=== PATIENT | female | born 1985 | race American Indian/Alaskan Native ===

== ENCOUNTER 2016-11-15 23:04 | Inpatient (IN) | payer MEDICAID, OTHER ==
[2016-11-16] MEDS ORDERED: LACTATED RINGERS 1,000 ML ONE (00:27)
[2016-11-16] MEDS ORDERED: BRETHINE IVP PRN (00:47)
[2016-11-16] MEDS ORDERED: XYLOCAINE 2% INFILTRATI ONE (00:47)
[2016-11-16] MEDS ORDERED: BRETHINE SUB-Q PRN (00:47)
[2016-11-16] MEDS ORDERED: SUBLIMAZE IV PRN (00:47)
[2016-11-16] MEDS ORDERED: NARCAN 0.4 MG/1 ML IV PRN (00:47)
[2016-11-16] MEDS ORDERED: ePHEDrine SULFATE IV PRN (00:47)
[2016-11-16] MEDS ORDERED: MINERAL OIL PO PRN (00:47)
[2016-11-16] MEDS ORDERED: ZOFRAN IV PRN ×2 (00:47→09:57)
--- NOTE | 2016-11-16 00:47 | History and Physical Report ---
History of Present Illness Date of examination: 11/16/16 Date of admission: 11/15/16 23:04 Chief complaint: IUFD History of present illness: Pt is a 31yo BF EDC 03/19/17; EGA 22 3/7 weeks presents from [facility] for induction due to IUFD. [facility] and went to [place] where an u/s showed an IUFD @ 22 weeks. Pt presents for induction of labor. records are not available, but [place] will fax her records. 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 History: herpes Family/Genetic History: hypertension, cancer Social history: no significant social history, - Obstetrical History Expected Date of Delivery: 03/19/17 Actual Gestation: 22 Week(s) 3 Day(s) : 9 Medications and Allergies Allergies Allergy/AdvReac Type Severity Reaction Status Date / Time acetaminophen Allergy Shortness Verified 05/12/13 09:22 [From Tylenol-Codeine #3] of Breath codeine phosphate Allergy Shortness Verified 05/12/13 09:22 [From Tylenol-Codeine #3] of Breath Latex, Natural Rubber Allergy Itching Verified 05/12/13 11:41 Home Medications Medication Instructions Recorded Confirmed Last Taken Type ALBUTEROL Inhaler [ProAir HFA 1 puff INHALATION PRN PRN 11/09/13 11/09/13 Unknown History Inhaler] Divalproex Dr [Depakote] 125 mg PO DAILY 11/09/13 11/09/13 10/10/13 History Ferrous Sulfate [Feosol 325 MG tab] 325 mg PO BID #60 tablet 01/15/15 Unknown Rx Ibuprofen [Motrin 800 MG tab] 800 mg PO Q8H PRN #30 tablet 01/15/15 Unknown Rx Pnv with Ca,No.72/Iron/FA 1 each PO DAILY #30 tablet 01/15/15 Unknown Rx [ Plus Tablet] Review of Systems All systems: negative - Vital Signs Vital signs: Vital Signs Pulse BP 76 123/78 11/15/16 23:37 11/15/16 23:37 Temp Pulse Resp BP Pulse Ox 76 123/78 11/15/16 23:37 11/15/16 23:37 - Physical Exam Breasts: Positive: deferred Cardiovascular: Regular rate Lungs: Positive: Clear to auscultation Abdomen: Positive: normal appearance, soft Genitourinary (Female): Positive: normal external genitalia Vagina: Positive: normal moisture Uterus: Positive: enlarged Extremities: Positive: normal - Obstetrical Uterine Contraction Monitor Mode: External Cervical Dilatation: 0 Cervical Effacement Percentage: 50 Results Result Diagrams: 11/16/16 01:58 11/16/16 01:58 All other labs normal. Ultrasound: pending Assessment and Plan - Patient Problems (1) demise, greater than 22 weeks, antepartum Onset Date: 11/16/16 Current Visit: Yes Status: Acute Qualifiers: Fetus number: single or unspecified fetus Qualified Code(s): O36.4XX0 - Maternal care for intrauterine , not applicable or unspecified Plan to address problem: A: IUFD @ 22 3/7 weeks P: Admit to L&D for induction of labor Obtain medical records from [place] and [facility]
[2016-11-16] MEDS ORDERED: PITOCin/NS 20 UNIT/1000ML DRIP 20 UNITS/1,000 ML BAG IV SCH ×2 (01:00→10:00)
[2016-11-16] MEDS ORDERED: PITOCin/NS 30 UNIT/500ML 30 UNITS/500 ML BAG IV SCH (01:00)
[2016-11-16] MEDS ORDERED: LACTATED RINGERS 1,000 ML IV SCH (01:00)
[2016-11-16] MEDS ORDERED: [UNRECOGNIZED DRUG - OTHER] VG SCH (02:00)
[2016-11-16 02:41] LABS: Hematocrit 31.2 % (30.3-42.9); Hemoglobin 10.3 gm/dl (10.1-14.3); Mean Corpuscular HGB Conc 33 % (30-34); Mean Corpuscular Hemoglobin 27 pg (28-32); Mean Corpuscular Volume 80 fl (79-97); Platelet Count 364 K/mm3 (140-440); Red Blood Count 3.89 M/mm3 (3.65-5.03); Red Cell Distribution Width 15.2 % (13.2-15.2); White Blood Count 9.1 K/mm3 (4.5-11.0)
[2016-11-16 03:33] LABS: Blood Urea Nitrogen 6 mg/dL (7-17); Calcium 10.2 mg/dL (8.4-10.2); Carbon Dioxide 18 mmol/L (22-30); Glucose 92 mg/dL (65-100)
[2016-11-16 04:01] LABS: Anion Gap 17 mmol/L; Chloride 105.2 mmol/L (98-107); Potassium 3.8 mmol/L (3.6-5.0); Sodium 136 mmol/L (137-145)
[2016-11-16] MEDS: STADOL IV PRN ×2 (04:51→10:08)
--- NOTE | 2016-11-16 09:55 | Procedure Note ---
OB Delivery Note - Delivery Date of Delivery: 11/16/16 Surgeon: BREANA LÓPEZ Estimated blood loss: 100cc - Vaginal Delivery presentation: unknown Intrapartum events: other(please specify) (IUFD) Delivery induction: other (prostin) Delivery monitor: external uterine Route of delivery: Delivery placenta: spontaneous Episiotomy: none Delivery laceration: none Anesthesia: intravenous - A at 1 minute: 0 at 5 minutes: 0 Gender: Female (255gms)
[2016-11-16] MEDS ORDERED: PHENERGAN PR PRN (09:57)
[2016-11-16] MEDS ORDERED: PHENERGAN PO PRN (09:57)
[2016-11-16] MEDS ORDERED: MILK OF MAGNESIA PO PRN (09:57)
[2016-11-16] MEDS ORDERED: TYLENOL PO PRN (09:57)
[2016-11-16] MEDS ORDERED: NORCO 5/325 PO PRN (09:59)
[2016-11-16] MEDS ORDERED: DULCOLAX PR PRN (10:00)
[2016-11-16] MEDS ORDERED: FEOSOL PO SCH (10:00)
[2016-11-16] MEDS ORDERED: SODIUM CHLORIDE FLUSH SYRINGE 10 ML IV NR (10:00)
[2016-11-16] MEDS ORDERED: PRENATAL VITAMIN PO SCH (10:00)
[2016-11-16] MEDS ORDERED: COLACE PO SCH (10:00)
[2016-11-16] MEDS ORDERED: LANSINOH TP PRN (11:00)
[2016-11-16] MEDS ORDERED: TUCKS PAD TP PRN (11:00)
[2016-11-16] MEDS ORDERED: BENADRYL PO PRN (11:00)
[2016-11-16 22:46] LABS: Hematocrit 30.2 % (30.3-42.9); Hemoglobin 9.9 gm/dl (10.1-14.3)
[2016-11-16] MEDS: MOTRIN PO SCH (22:51)
[2016-11-17] MEDS: MOTRIN PO SCH (04:45)
[2016-11-17] MEDS ORDERED: BOOSTRIX IM ONE (06:00)
--- NOTE | 2016-11-17 10:52 | Progress Note ---
Assessment and Plan A: S/P Vaginal delivery of IUFD P: Discharge home today Subjective - Subjective Date of service: 11/17/16 Principal diagnosis: IUFD @ 20+ weeks Patient reports: appetite normal : other (IUFD) Objective - Vital Signs Latest vital signs: Vital Signs Temp Pulse Pulse Resp BP BP 11/17/16 08:10 98.0 F 64 16 101/64 11/17/16 04:00 98.6 F 64 18 110/67 11/17/16 00:00 98.8 F 58 L 18 102/53 11/16/16 20:00 98.6 F 64 18 121/70 11/16/16 16:53 98.5 F 66 18 106/54 11/16/16 13:00 99.2 F 98 H 18 150/81 11/16/16 12:08 93 H 119/76 11/16/16 11:53 89 114/75 11/16/16 11:38 75 112/68 11/16/16 11:23 83 122/70 11/16/16 11:10 99.5 F 103 H 103 H 18 123/82 123/88 Intake and Output 11/16/16 11/17/16 11/17/16 22:59 06:59 14:59 Intake Total 600 Output Total 400 Balance 200 Intake: Oral 600 Output: Urine 400 Void 400 Other: Total, Intake Amount 240 Total, Output Amount 250 - Exam Breasts: Present: deferred Cardiovascular: Present: Regular rate Lungs: Present: Clear to auscultation Abdomen: Present: soft Vulva: both: normal Uterus: Present: fundal height below umbilicus Deep Tendon Reflex Grade: Normal +2 - Labs Labs: Abnormal lab results 11/16/16 Range/Units 22:20 Hgb 9.9 L (10.1-14.3) gm/dl Hct 30.2 L (30.3-42.9) %
--- NOTE | 2016-11-17 10:53 | Discharge Summary ---
Providers - Providers Date of Admission: 11/15/16 23:04 Date of discharge: 11/17/16 Attending physician: BREANA SULTANA MD Primary care physician: BREANA SULTANA MD Hospitalization Reason for admission: IUFD Delivery: Episiotomy: none Laceration: none Other procedures: none complications: none Discharge diagnosis: other (IUFD) baby: female Condition at discharge: Good Disposition: DC-01 TO HOME OR SELFCARE Plan - Provider Discharge Summary Activity: routine, no sex for 6 weeks, no strenuous exercise Diet: routine Instructions: routine Additional instructions: [] Smoking cessation referral if applicable(refer to patient education folder for contact #) [] Refer to [facility]'s [facility] Booklet Call your doctor immediately for: * Fever > 100.5 * Heavy vaginal bleeding ( >1 pad per hour) * Severe persistent headache * Shortness of breath * Reddened, hot, painful area to leg or breast * Drainage or odor from incision. * Keep incision clean and dry at all times and follow doctor's instructions regarding bathing/showering - Follow up plan Follow up: [facility] [Provider Group] - 6 Weeks
[2016-11-17] MEDS ORDERED: M-M-R II VACCINE SUB-Q ONE (11:00)
[2016-11-17 13:42] VITALS: BP 141/80
== END 2016-11-17 14:00 | disposition home or self-care (01) | DRG 774 ==
LOC: LD 23:04 → OB 11-16 13:00
PROVIDERS: ADMIT Obstetrics & Gynecology; ATTEND Obstetrics & Gynecology
PROC: 10D07Z8 Extraction of Products of Conception, Other, Via Natural or Artificial Opening (ICD-10-PCS; principal; 2016-11-16)
DX: O36.4XX0 Maternal care for intrauterine death, not applicable or unspecified (principal); O16.2 Unspecified maternal hypertension, second trimester; Z68.41 Body mass index [BMI] 40.0-44.9, adult; O99.212 Obesity complicating pregnancy, second trimester; J45.909 Unspecified asthma, uncomplicated; B00.9 Herpesviral infection, unspecified; Z88.6 Allergy status to analgesic agent; Z3A.22 22 weeks gestation of pregnancy; Z91.040 Latex allergy status; Z91.048 Other nonmedicinal substance allergy status; Z90.49 Acquired absence of other specified parts of digestive tract; Z80.9 Family history of malignant neoplasm, unspecified; Z82.49 Family history of ischemic heart disease and other diseases of the circulatory system
CPT/HCPCS: 36415; 59200; 80048; 85014; 85018; 85027; 85730; 86850; 86900; 86901; 88305; J0595; J2405; J2590; J7120

== ENCOUNTER 2020-01-12 18:03 | Outpatient (CLI) | payer OTHER ==
[2020-01-12 20:57] LABS: Bacteria,Urine 2+ /HPF (Negative); Bilirubin,Urine NEG (Negative); Blood,Urine SM (Negative); Color,Urine Yellow (Yellow); Mucus,Urine 3+ /HPF
[2020-01-12 22:16] LABS: Alanine Aminotransferase 7 units/L (7-56); Uric Acid 6.8 mg/dL (3.5-7.6)
[2020-01-12 22:19] LABS: Hematocrit 25.6 % (30.3-42.9); Hemoglobin 7.8 gm/dl (10.1-14.3); Mean Corpuscular HGB Conc 31 % (30-34); Mean Corpuscular Volume 68 fl (79-97); Platelet Count 450 K/mm3 (140-440); Red Blood Count 3.79 M/mm3 (3.65-5.03); Red Cell Distribution Width 18.9 % (13.2-15.2)
[2020-01-12 22:26] VITALS: BP 134/78
[2020-01-12] MEDS ORDERED: IRON DEXTRAN COMPLEX 100 MG/2 ML INJ IM ONE (22:26)
[2020-01-12] MEDS ORDERED: LIDOCAINE-MPF (1%) 10 MG/1 ML VIAL 5 ML INFILTRATI ONE (22:26)
[2020-01-12] MEDS ORDERED: LACTATED RINGERS 1,000 ML IV ONE (22:26)
== END 2020-01-12 23:56 | disposition home or self-care (01) ==
LOC: TRG 18:03 → APU 18:05 → TRG 23:56
PROVIDERS: ATTEND Obstetrics & Gynecology
DX: O26.893 Other specified pregnancy related conditions, third trimester (principal); M54.9 Dorsalgia, unspecified; M79.89 Other specified soft tissue disorders; O47.1 False labor at or after 37 completed weeks of gestation; O99.013 Anemia complicating pregnancy, third trimester; O99.513 Diseases of the respiratory system complicating pregnancy, third trimester; O13.3 Gestational [pregnancy-induced] hypertension without significant proteinuria, third trimester; O99.343 Other mental disorders complicating pregnancy, third trimester; Z3A.37 37 weeks gestation of pregnancy
CPT/HCPCS: 36415; 59025; 81001; 82565; 83615; 84450; 84460; 84550; 85027; 96372; J0696; J1750; J7120

== ENCOUNTER 2020-01-17 17:01 | Inpatient (IN) | payer OTHER ==
[2020-01-17] MEDS ORDERED: MINERAL OIL 30 ML ORAL LIQD PO PRN (17:05)
[2020-01-17] MEDS ORDERED: LIDOCAINE (2%) 20 MG/1 ML VIAL 20 ML MDV INFILTRATI ONE (17:05)
[2020-01-17] MEDS ORDERED: TERBUTALINE 1 MG/1 ML INJ SUB-Q PRN (17:05)
[2020-01-17] MEDS ORDERED: NalbUPHINE 10 MG/1 ML INJ IV PRN (17:05)
[2020-01-17] MEDS ORDERED: ONDANSETRON 4 MG/2 ML INJ IV PRN (17:05)
[2020-01-17] MEDS ORDERED: ePHEDrine SULFATE 50 MG/1 ML INJ IV PRN (17:05)
[2020-01-17] MEDS ORDERED: BUTORPHANOL 2 MG/1 ML INJ IV PRN ×2 (17:05)
[2020-01-17] MEDS ORDERED: AMPICILLIN/NS 2 GM/100 ML 2 GM/100 ML BAG IV ONE (17:05)
[2020-01-17] MEDS ORDERED: NALOXONE 0.4 MG/1 ML INJ IV PRN (17:05)
[2020-01-17] MEDS ORDERED: ACETAMINOPHEN 325 MG TAB PO PRN (17:05)
--- NOTE | 2020-01-17 17:19 | History and Physical Report ---
History of Present Illness Date of examination: 01/17/20 Chief complaint: Induction of labor History of present illness: 34yo at 38+0/7 weeks be second trimester US, IOL for maternal cardiomegaly,elevated blood pressures, hx of IUFDx2 and AMA NATALEE 01/31/20 OB PNC at [facility] OBGYN/Pediatrics: 13 visits, first visit at 7 weeks(06/17/19) and last visit at 36.5 weeks (01/11/2020) Comanaged by [facility] GBS positive MultipartyL desires BTL Federal Consent signed 10/26/19 H/O PIH H/O Asthma ANemia, 9.2 antepartum BMI 46 H/O PTDx5 and IUFDx2 at 20-22 weeks H/O HGSIL S/P LEEP Labs: A/positive, antibody negative PAp AQSC-H HPV HR +ve Rubella immune VDRL NR HBsAg negative HIV NR PTL 522 Varicella immune GC/Chlamydia/Trich:negative MSAFP negative OSB GCT 113 HbA1c 5.7% Cell free DNA: low risk for trisomy.atypical sex chromosome noted Past History Past Medical History: asthma (Morbid Obesity), hypertension, seizure (last seizure 2017), other (AMA, Anemia) Past Surgical History: 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 History: abnormal PAP smear (HGSIL) - Obstetrical History Expected Date of Delivery: 01/31/20 Actual Gestation: 38 Week(s) 0 Day(s) : 14 Para: 6 Medications and Allergies Allergies Allergy/AdvReac Type Severity Reaction Status Date / Time acetaminophen Allergy Shortness Verified 05/12/13 09:22 [From Tylenol-Codeine #3] of Breath codeine phosphate Allergy Shortness Verified 05/12/13 09:22 [From Tylenol-Codeine #3] of Breath Latex, Natural Rubber Allergy Itching Verified 05/12/13 11:41 Home Medications Medication Instructions Recorded Confirmed Last Taken Type Albuterol Mdi (or & Nicu Only) 1 puff INHALATION PRN PRN 11/09/13 12/16/19 12/16/19 09:00 History [ProAir HFA Inhaler] Divalproex Dr [Depakote] 125 mg PO DAILY 11/09/13 12/16/19 10/10/13 History Ferrous Sulfate [Feosol 325 MG tab] 325 mg PO BID #60 tablet 01/15/15 12/16/19 Unknown Rx Ibuprofen [Motrin 800 MG tab] 800 mg PO Q8H PRN #30 tablet 01/15/15 12/16/19 Unknown Rx Pnv,Calcium 72/Iron/Folic Acid 1 each PO DAILY #30 tablet 01/15/15 12/16/19 12/14/19 11:30 Rx [ Plus Tablet] Active Meds: Active Medications Acetaminophen (Tylenol) 650 mg PO Q4H PRN PRN Reason: Pain, Mild (1-3) Butorphanol Tartrate (Stadol) 1 mg IV Q2H PRN PRN Reason: Pain, Moderate(4-6) LABOR PAIN Butorphanol Tartrate (Stadol) 2 mg IV Q2H PRN PRN Reason: Pain , Severe (7-10) Ephedrine Sulfate (Ephedrine Sulfate) 10 mg IV Q2M PRN PRN Reason: Hypotension Fentanyl (Sublimaze) 100 mcg IV Q2H PRN PRN Reason: Pain,Severe (7-10) LABOR PAIN Oxytocin/Sodium Chloride (Pitocin/Ns 30 Unit/500ml) 30 units in 500 mls @ 2 mls/hr IV TITR DIGNA; Protocol Lactated Ringer's (Lactated Ringers) 1,000 mls @ 125 mls/hr IV DIRECT DIGNA Oxytocin/Sodium Chloride (Pitocin/Ns 20 Unit/1000ml Drip) 20 units in 1,000 mls @ 125 mls/hr IV DIRECT DIGNA Ampicillin Sodium (Ampicillin/Ns 2 Gm/100 Ml) 2 gm in 100 mls @ 100 mls/hr IV ONCE ONE; Protocol Stop: 01/17/20 18:04 Lidocaine (Xylocaine 2%) 20 ml INFILTRATI ONCE ONE Stop: 01/17/20 17:06 Mineral Oil (Mineral Oil) 30 ml PO QHS PRN PRN Reason: Constipation Nalbuphine HCl (Nalbuphine) 10 mg IV Q2H PRN PRN Reason: Pain, Moderate (4-6) Naloxone HCl (Naloxone) 0.1 mg IV Q2MIN PRN PRN Reason: Res Rate </= 8 or 02 SAT < 92% Ondansetron HCl (Zofran) 4 mg IV Q8H PRN PRN Reason: Nausea And Vomiting Terbutaline Sulfate (Brethine) 0.25 mg SUB-Q ONCE PRN PRN Reason: Hyperstimulation/Hypertonicity Review of Systems All systems: negative (no contractions, no LOF, no VB, +ve FM) - Physical Exam Breasts: Positive: deferred Cardiovascular: Regular rate Lungs: Positive: Clear to auscultation Abdomen: Positive: normal appearance, soft, normal bowel sounds Genitourinary (Female): Positive: normal external genitalia Vagina: Positive: normal moisture Uterus: Positive: enlarged Extremities: Positive: normal Deep Tendon Reflex Grade: Normal +2 - Obstetrical FHR: category 1 Uterine Contraction Monitor Mode: External Cervical Dilatation: 3 Cervical Effacement Percentage: 0 station: -3 Results All other labs normal. Assessment and Plan delivery recommended as per [facility] GBS protocol plan for slow oxytocin infusion second to cardiomegaly: will be sensitive to fluid overload and BP's PIH labs desires BTL: will try for tubal, however pt understands that if this is not possible, then plan for depo provera for interval contraception and outpatient scheduling of BTL maternal/ status reassuring at bedside Marta Olson MD
[2020-01-17] MEDS ORDERED: OXYTOCIN DRIP 30 UNITS/500 ML BAG IV SCH (18:00)
[2020-01-17 18:37] LABS: Hematocrit 28.3 % (30.3-42.9); Hemoglobin 8.6 gm/dl (10.1-14.3); Mean Corpuscular HGB Conc 30 % (30-34); Platelet Count 547 K/mm3 (140-440); Red Blood Count 4.19 M/mm3 (3.65-5.03); Red Cell Distribution Width 19.3 % (13.2-15.2)
[2020-01-17 18:41] LABS: Alanine Aminotransferase 9 units/L (7-56); Uric Acid 6.3 mg/dL (3.5-7.6)
[2020-01-17 18:42] LABS: Mean Corpuscular Volume 68 fl (79-97)
[2020-01-17] MEDS: fentaNYL 100 MCG/2 ML INJ IV PRN (20:23)
[2020-01-17] MEDS: AMPICILLIN/NS 1 GM/50 ML 1 GM/50 ML BAG IV SCH (22:29)
[2020-01-18] MEDS: fentaNYL 100 MCG/2 ML INJ IV PRN (00:40)
--- NOTE | 2020-01-18 01:23 | Progress Note ---
Subjective - Subjective Date of service: 01/18/20 Interval history: pt feeling contractions, desires epidural AROM clear fluid cervix 5cm/80/-2 Bernice: Q5 minutes increase oxytocin per protocol continue abx maternal/ well being reassuring overall Marta Shi MD Patient reports: movement normal Objective - Vital Signs Vital Signs: Vital Signs - 12hr 01/17/20 01/17/20 01/17/20 17:50 18:17 19:11 Temperature 97.7 F Pulse Rate 94 H 81 Respiratory 18 Rate Blood Pressure 91/54 119/99 O2 Sat by Pulse Oximetry 01/17/20 01/17/20 01/17/20 19:20 21:09 22:09 Temperature 98.1 F Pulse Rate 61 60 Respiratory Rate Blood Pressure 119/69 120/68 O2 Sat by Pulse Oximetry 01/17/20 01/17/20 01/17/20 23:27 23:28 23:33 Temperature Pulse Rate 68 67 62 Respiratory Rate Blood Pressure 117/78 O2 Sat by Pulse 100 99 Oximetry 01/17/20 01/17/20 01/17/20 23:38 23:43 23:48 Temperature Pulse Rate 63 62 60 Respiratory Rate Blood Pressure O2 Sat by Pulse 99 99 100 Oximetry 01/17/20 01/17/20 01/18/20 23:53 23:58 00:03 Temperature Pulse Rate 59 L 66 61 Respiratory Rate Blood Pressure O2 Sat by Pulse 99 100 100 Oximetry 01/18/20 01/18/20 01/18/20 00:08 00:09 00:13 Temperature 97.8 F Pulse Rate 55 L 58 L 61 Respiratory 16 Rate Blood Pressure 127/82 O2 Sat by Pulse 100 100 Oximetry 01/18/20 01/18/20 01/18/20 00:18 00:23 00:28 Temperature Pulse Rate 56 L 55 L 55 L Respiratory Rate Blood Pressure O2 Sat by Pulse 99 98 99 Oximetry 01/18/20 01/18/20 01/18/20 00:33 00:38 00:43 Temperature Pulse Rate 54 L 56 L 60 Respiratory Rate Blood Pressure O2 Sat by Pulse 99 99 96 Oximetry 01/18/20 01/18/20 01/18/20 00:48 00:53 00:58 Temperature Pulse Rate 59 L 67 61 Respiratory Rate Blood Pressure O2 Sat by Pulse 97 96 99 Oximetry 01/18/20 01/18/20 01:03 01:18 Temperature Pulse Rate 90 62 Respiratory Rate Blood Pressure O2 Sat by Pulse 91 99 Oximetry - Labs Labs: Abnormal Labs 01/17/20 18:03 WBC 12.4 H Hgb 8.6 L Hct 28.3 L MCV 68 L MCH 21 L RDW 19.3 H Plt Count 547 H Laboratory Results - last 24 hr 01/17/20 01/17/20 01/17/20 18:03 18:03 18:03 WBC 12.4 H RBC 4.19 Hgb 8.6 L Hct 28.3 L MCV 68 L MCH 21 L MCHC 30 RDW 19.3 H Plt Count 547 H Creatinine 0.6 Estimated GFR > 60 Uric Acid 6.3 AST 15 ALT 9 Lactate Dehydrogenase 178 Blood Type A POSITIVE Antibody Screen Negative
[2020-01-18] MEDS: LACTATED RINGERS 1,000 ML IV SCH ×2 (01:26→02:09)
[2020-01-18] MEDS ORDERED: DEXMEDETOMIDINE 200 MCG/2 ML VIAL IV ONE (02:21)
[2020-01-18] MEDS: AMPICILLIN/NS 1 GM/50 ML 1 GM/50 ML BAG IV SCH (02:24)
[2020-01-18] MEDS ORDERED: diphenhydrAMINE 50 MG/ML VIAL IV PRN (02:37)
[2020-01-18] MEDS ORDERED: NALOXONE 2 MG/2 ML INJ IV PRN (02:37)
[2020-01-18] MEDS ORDERED: NalbUPHINE 10 MG/1 ML INJ IV PRN (02:37)
[2020-01-18] MEDS ORDERED: ONDANSETRON 4 MG/2 ML INJ IV PRN ×2 (02:37→10:00)
--- NOTE | 2020-01-18 02:40 | Anesthesia Consultation ---
Anesthesia Consult and Med Hx Date of service: 01/18/20 - Airway Anesthetic Teeth Evaluation: Good ROM Head & Neck: Adequate Mental/Hyoid Distance: Adequate Mallampati Class: Class II Intubation Access Assessment: Probably Good - Pulmonary Exam CTA: Yes - Cardiac Exam Cardiac Exam: RRR - Pre-Operative Health Status ASA Pre-Surgery Classification: ASA2 Proposed Anesthetic Plan: Epidural - Pulmonary Hx Smoking: No Hx Asthma: Yes (last attack a month ago) COPD: No Hx Pneumonia: No Hx Sleep Apnea: No - Cardiovascular System Hx Hypertension: Yes (Cardiomegaly) Hx Coronary Artery Disease: No Hx Heart Attack/AMI: No Hx Angina: No - Central Nervous System Hx Seizures: No Hx Psychiatric Problems: No - Gastrointestinal Hx Gastroesophageal Reflux Disease: No - Endocrine Hx Renal Disease: No Hx End Stage Renal Disease: No Hx Hypothyroidism: No Hx Hyperthyroidism: No - Hematic Hx Anemia: Yes (all pregnancies) Hx Sickle Cell Disease: No - Other Systems Hx Alcohol Use: No
--- NOTE | 2020-01-18 02:41 | Progress Note ---
Labor Epidural - Labor Epidural Start Time: 02:19 Stop Time: 02:34 Performed by:: MARÍA ELENA MEDINA (Kisha ZAVALA) Procedure: Patient is requesting a laboring epidural for laboring pain. Patient IDed, H&P reviewed, all questions and concerns were answered, and consent was signed. Timeout was performed at bedside. Patient in sitting position. Sterile prep and drape was performed. 3ml of 1% lidocaine skin wheal at L[2]- L [3]. 18- gauge Touhy epidural needle was advanced to loss of resistance at 8cm with air technique. Negative CSF negative blood. Epidural catheter advanced to [15] centimeters. [-] Aspiration [-] test dose. Sterile dressing applied. Patient tolerated procedure.
[2020-01-18] MEDS ORDERED: fentaNYL-BUPIV 2 MCG/ML-0.125% 200 MCG/100 ML BAG EPIDURAL SCH (03:00)
--- NOTE | 2020-01-18 03:42 | Progress Note ---
Subjective - Subjective Date of service: 01/18/20 Interval history: pt feeling pressure, comfortable with epidural cervix 9cm/100%/-1 [place]: Q3-4 minutes continue oxytocin per protocol maternal/ well being reassuring overall Marta Shi MD Patient reports: movement normal Objective - Vital Signs Vital Signs: Vital Signs - 12hr 01/17/20 01/17/20 01/17/20 17:50 18:17 19:11 Temperature 97.7 F Pulse Rate 94 H 81 Respiratory 18 Rate Blood Pressure 91/54 119/99 O2 Sat by Pulse Oximetry 01/17/20 01/17/20 01/17/20 19:20 21:09 22:09 Temperature 98.1 F Pulse Rate 61 60 Respiratory Rate Blood Pressure 119/69 120/68 O2 Sat by Pulse Oximetry 01/17/20 01/17/20 01/17/20 23:27 23:28 23:33 Temperature Pulse Rate 68 67 62 Respiratory Rate Blood Pressure 117/78 O2 Sat by Pulse 100 99 Oximetry 01/17/20 01/17/20 01/17/20 23:38 23:43 23:48 Temperature Pulse Rate 63 62 60 Respiratory Rate Blood Pressure O2 Sat by Pulse 99 99 100 Oximetry 01/17/20 01/17/20 01/18/20 23:53 23:58 00:03 Temperature Pulse Rate 59 L 66 61 Respiratory Rate Blood Pressure O2 Sat by Pulse 99 100 100 Oximetry 01/18/20 01/18/20 01/18/20 00:08 00:09 00:13 Temperature 97.8 F Pulse Rate 55 L 58 L 61 Respiratory 16 Rate Blood Pressure 127/82 O2 Sat by Pulse 100 100 Oximetry 01/18/20 01/18/20 01/18/20 00:18 00:23 00:28 Temperature Pulse Rate 56 L 55 L 55 L Respiratory Rate Blood Pressure O2 Sat by Pulse 99 98 99 Oximetry 01/18/20 01/18/20 01/18/20 00:33 00:38 00:43 Temperature Pulse Rate 54 L 56 L 60 Respiratory Rate Blood Pressure O2 Sat by Pulse 99 99 96 Oximetry 01/18/20 01/18/20 01/18/20 00:48 00:53 00:58 Temperature Pulse Rate 59 L 67 61 Respiratory Rate Blood Pressure O2 Sat by Pulse 97 96 99 Oximetry 01/18/20 01/18/20 01/18/20 01:03 01:18 01:23 Temperature Pulse Rate 90 62 63 Respiratory Rate Blood Pressure O2 Sat by Pulse 91 99 100 Oximetry 01/18/20 01/18/20 01/18/20 01:28 01:33 01:38 Temperature Pulse Rate 61 55 L 58 L Respiratory Rate Blood Pressure O2 Sat by Pulse 99 100 100 Oximetry 01/18/20 01/18/20 01/18/20 01:43 01:48 01:53 Temperature Pulse Rate 63 65 67 Respiratory Rate Blood Pressure O2 Sat by Pulse 99 100 100 Oximetry 01/18/20 01/18/20 01/18/20 01:58 02:00 02:03 Temperature Pulse Rate 58 L 77 79 Respiratory Rate Blood Pressure O2 Sat by Pulse 100 93 100 Oximetry 01/18/20 01/18/20 01/18/20 02:08 02:10 02:13 Temperature Pulse Rate 62 65 67 Respiratory Rate Blood Pressure 120/69 O2 Sat by Pulse 100 100 Oximetry 01/18/20 01/18/20 01/18/20 02:18 02:22 02:23 Temperature Pulse Rate 76 75 75 Respiratory Rate Blood Pressure 120/85 122/64 O2 Sat by Pulse 100 100 Oximetry 01/18/20 01/18/20 01/18/20 02:26 02:28 02:32 Temperature Pulse Rate 66 64 75 Respiratory Rate Blood Pressure 138/83 145/94 O2 Sat by Pulse 100 Oximetry 01/18/20 01/18/20 01/18/20 02:33 02:34 02:37 Temperature Pulse Rate 66 82 83 Respiratory Rate Blood Pressure 145/90 153/83 O2 Sat by Pulse 100 Oximetry 01/18/20 01/18/20 01/18/20 02:38 02:42 02:43 Temperature Pulse Rate 95 H 100 H 79 Respiratory Rate Blood Pressure 108/78 O2 Sat by Pulse 100 100 Oximetry 01/18/20 01/18/20 01/18/20 02:45 02:47 02:48 Temperature Pulse Rate 106 H 108 H 71 Respiratory Rate Blood Pressure 84/56 78/41 O2 Sat by Pulse 100 Oximetry 01/18/20 01/18/20 01/18/20 02:49 02:51 02:52 Temperature Pulse Rate 60 65 61 Respiratory Rate Blood Pressure 135/94 130/71 120/62 O2 Sat by Pulse Oximetry 0901/18/20 01/18/20 02:53 02:54 02:57 Temperature Pulse Rate 61 72 96 H Respiratory Rate Blood Pressure 115/58 111/53 O2 Sat by Pulse 100 Oximetry 01/18/20 01/18/20 01/18/20 02:58 02:59 03:03 Temperature Pulse Rate 68 75 100 H Respiratory Rate Blood Pressure 122/60 O2 Sat by Pulse 100 100 Oximetry 01/18/20 01/18/20 01/18/20 03:07 03:08 03:10 Temperature Pulse Rate 51 L 55 L 91 H Respiratory Rate Blood Pressure 116/59 101/52 O2 Sat by Pulse 99 Oximetry 01/18/20 01/18/20 01/18/20 03:13 03:16 03:18 Temperature Pulse Rate 63 62 70 Respiratory Rate Blood Pressure 120/56 O2 Sat by Pulse 99 99 Oximetry 01/18/20 01/18/20 01/18/20 03:20 03:23 03:27 Temperature Pulse Rate 82 72 61 Respiratory Rate Blood Pressure 104/54 115/56 O2 Sat by Pulse 98 Oximetry 01/18/20 01/18/20 01/18/20 03:28 03:30 03:33 Temperature Pulse Rate 82 97 H 60 Respiratory Rate Blood Pressure 95/46 O2 Sat by Pulse 100 100 Oximetry 01/18/20 01/18/20 03:35 03:38 Temperature Pulse Rate 61 113 H Respiratory Rate Blood Pressure 116/55 O2 Sat by Pulse 100 Oximetry - Labs Labs: Abnormal Labs 01/17/20 18:03 WBC 12.4 H Hgb 8.6 L Hct 28.3 L MCV 68 L MCH 21 L RDW 19.3 H Plt Count 547 H Laboratory Results - last 24 hr 01/17/20 01/17/20 01/17/20 18:03 18:03 18:03 WBC 12.4 H RBC 4.19 Hgb 8.6 L Hct 28.3 L MCV 68 L MCH 21 L MCHC 30 RDW 19.3 H Plt Count 547 H Creatinine 0.6 Estimated GFR > 60 Uric Acid 6.3 AST 15 ALT 9 Lactate Dehydrogenase 178 Blood Type A POSITIVE Antibody Screen Negative
[2020-01-18] MEDS: OXYTOCIN 20 UNIT/1000ML DRIP 20 UNITS/1,000 ML BAG IV SCH ×2 (04:06→06:00)
--- NOTE | 2020-01-18 04:12 | Procedure Note ---
OB Delivery Note - Delivery Date of Delivery: 01/18/20 Surgeon: PAULA HAIRSTON Estimated blood loss: other (250ml) - Vaginal Delivery position: OA Intrapartum events: mult.variable deceleratio Delivery induction: oxytocin Delivery augmentation: rupture of membranes Delivery monitor: external FHT, external uterine Route of delivery: Delivery placenta: spontaneous Delivery cord: 3 umbilical vessels Episiotomy: none Delivery laceration: none Delivery comments: Patient pushed to deliver a viable male over an intact perineum with weight and pending. Position NIXON, no nuchal cord. Spontaneous cry at delivery. Delivery of the anterior shoulder atraumatic, remainder of delivery uncomplicated. Baby placed on maternal abdomen after delivery. Delayed cord clamping ~1 minute. Cord clamped cut and baby handed to waiting [facility] team. Spontaneous delivery of an intact placenta with three-vessel cord. Inspection of the perineum cervix and vagina revealed no lacerations. Firm fundus, EBL 250mlk. All sponge needle and instrument counts correct x2. Mom and baby stable to . Marta Hairston MD
[2020-01-18] MEDS ORDERED: diphenhydrAMINE 25 MG CAP PO PRN (10:00)
[2020-01-18] MEDS ORDERED: WITCH HAZEL/ GLYCERIN PAD TP PRN (10:00)
[2020-01-18] MEDS ORDERED: LANOLIN/ZINC/DIMETHICONE (LANSINOH) 7 GM TP PRN (10:00)
[2020-01-18] MEDS ORDERED: PROMETHAZINE 25 MG TAB PO PRN (10:00)
[2020-01-18] MEDS: IBUPROFEN 600 MG TAB PO SCH ×3 (11:12→22:10)
[2020-01-18] MEDS: oxyCODONE /ACETAMINOPHEN 5-325MG TAB PO PRN ×2 (11:16→18:23)
--- NOTE | 2020-01-18 16:36 | Post Anesthesia Evaluation ---
- Post Anesthesia Evaluation Patient Participated: Yes Airway Patent: Yes Stable Respiratory Function: Yes Nausea/Vomiting: No Temp > 96.8F: Yes Pain Manageable: Yes Adequeate Hydration: Yes Anesthesia Complications: No Block Receding Appropriately: Yes Patient on Ventilator: No
[2020-01-18 20:02] LABS: Hematocrit 27.7 % (30.3-42.9); Hemoglobin 7.8 gm/dl (10.1-14.3)
[2020-01-18] MEDS ORDERED: MAGNESIUM HYDROXIDE (MOM) ORAL LIQD UDC PO PRN (22:00)
[2020-01-19] MEDS: IBUPROFEN 600 MG TAB PO SCH (04:10)
[2020-01-19] MEDS: oxyCODONE /ACETAMINOPHEN 5-325MG TAB PO PRN ×2 (04:11→11:38)
[2020-01-19 05:17] LABS: Bilirubin,Urine NEG (Negative); Blood,Urine LG (Negative); Color,Urine Straw (Yellow); Protein,Urine <15 mg/dL mg/dL (Negative); Urobilinogen,Urine < 2.0 mg/dL (<2.0)
[2020-01-19 05:56] LABS: Bacteria,Urine 1+ /HPF (Negative); Mucus,Urine FEW /HPF
[2020-01-19] MEDS ORDERED: IRON DEXTRAN COMPLEX 100 MG/2 ML INJ IM ONE (12:06)
[2020-01-19 12:43] VITALS: BP 127/74
--- NOTE | 2020-01-19 12:49 | Progress Note ---
Assessment and Plan A: PP Day #1 Asymptomatic Anemia Cardiomegaly P: Follow Routine Orders FeSO4 325mg PO BID Infed 100mg IM x 1 dose Depo Provera 150mg Im x 1 dose prior to discharge D/C home today per Routine Orders RTO in 3 Weeks for Tubal Consult Subjective - Subjective Date of service: 01/19/20 Patient reports: appetite normal, voiding normally, pain well controlled, flatus, ambulating normally : doing well, bottle feeding (and ) Objective - Vital Signs Latest vital signs: Vital Signs Temp Pulse Resp BP BP Pulse Ox 01/19/20 12:22 97.9 F 75 20 127/74 97 01/19/20 07:18 97.8 F 71 16 112/63 97 01/18/20 20:26 98.0 F 79 18 133/70 100 01/18/20 16:05 98 F 66 20 120/75 Intake and Output 01/18/20 01/19/20 01/19/20 22:59 06:59 14:59 Intake Total 440 200 240 Output Total 400 Balance 40 200 240 Intake: Oral 440 200 240 Output: Urine 400 Void 400 Other: Total, Intake Amount 120 200 240 Total, Output Amount 400 # Voids Void 2 1 - Exam Breasts: Present: normal Cardiovascular: Present: Regular rate Lungs: Present: Clear to auscultation, Normal air movement Abdomen: Present: normal appearance, soft, normal bowel sounds Uterus: Present: normal, firm, fundal height below umbilicus Extremities: Present: edema (+1) - Labs Labs: Abnormal lab results 01/18/20 Range/Units 19:31 Hgb 7.8 L (10.1-14.3) gm/dl Hct 27.7 L (30.3-42.9) %
--- NOTE | 2020-01-19 12:50 | Discharge Summary ---
Providers - Providers Date of Admission: 01/17/20 17:09 Date of discharge: 01/19/20 Attending physician: PAULA HAIRSTON MD Primary care physician: PAULA HAIRSTON MD Hospitalization Reason for admission: induction of labor Delivery: Episiotomy: none Laceration: none Other procedures: none complications: none Discharge diagnosis: IUP at term delivered [place] baby: male Condition at discharge: Good Disposition: DC-01 TO HOME OR SELFCARE Plan - Provider Discharge Summary Activity: routine, no sex for 6 weeks, no heavy lifting 4 weeks, no strenuous exercise Diet: routine Instructions: routine Additional instructions: [] Smoking cessation referral if applicable(refer to patient education folder for contact #) [] Refer to [facility]'s [facility] Booklet Call your doctor immediately for: * Fever > 100.5 * Heavy vaginal bleeding ( >1 pad per hour) * Severe persistent headache * Shortness of breath * Reddened, hot, painful area to leg or breast * Drainage or odor from incision. * Keep incision clean and dry at all times and follow doctor's instructions regarding bathing/showering - Follow up plan Follow up: PAULA HAIRSTON MD [Primary Care Provider] - 02/09/20
[2020-01-19] MEDS ORDERED: FERROUS SULFATE 325 MG TAB PO SCH (13:00)
[2020-01-19] MEDS ORDERED: medroxyPROGESTERone ACETATE 150 MG/ML SYRINGE IM SCH (13:00)
== END 2020-01-19 15:25 | disposition home or self-care (01) | DRG 807 ==
LOC: TRG 17:01 → LD 17:02 → TRG 17:08 → LD 17:09 → OB 01-18 06:15
PROVIDERS: ADMIT Obstetrics & Gynecology; ATTEND Obstetrics & Gynecology
PROC: 10E0XZZ Delivery of Products of Conception, External Approach (ICD-10-PCS; principal; 2020-01-18)
PROC: 3E033VJ Introduction of Other Hormone into Peripheral Vein, Percutaneous Approach (ICD-10-PCS; 2020-01-18)
DX: O76 Abnormality in fetal heart rate and rhythm complicating labor and delivery (principal); Z37.0 Single live birth; J45.909 Unspecified asthma, uncomplicated; O99.52 Diseases of the respiratory system complicating childbirth; O16.4 Unspecified maternal hypertension, complicating childbirth; O99.214 Obesity complicating childbirth; E66.01 Morbid (severe) obesity due to excess calories; O90.81 Anemia of the puerperium; D64.9 Anemia, unspecified; Z3A.38 38 weeks gestation of pregnancy
CPT/HCPCS: 36415; 81001; 82565; 83615; 84450; 84460; 84550; 85014; 85018; 85027; 86850; 86900; 86901; 87086; G0378; J0290; J1050; J1750; J2405; J2590; J3010; J3490; J7120; U0003-CS